=== PATIENT | female | born 1950 | race Caucasian/White ===

== ENCOUNTER 2017-11-23 12:15 | Day surgery (SDC) | payer MEDICARE, OTHER ==
[~2017-11-23] VITALS: Ht 154.9 cm; Wt 74.4 kg
[~2017-11-23 12:15] MED LIST: ABILIFY5 MG; AMBIEN10 MG PO; CIPRO500 MG PO; CYCLOBENZAPRINE10 MG PO; FLAGYL500 MG PO; FLOVENT DISKU100 MCG; LEVOTHYROXINE112 MCG PO; MIRALAX17 GM PO; MIRAPEX1 MG PO; NABUMETONE750 MG PO; NORCO 5-325 TA1 EACH PO; OMEPRAZOLE20 MG PO; PREDNISONE20 MG PO; TRAMADOL HCL50 MG PO; VENTOLIN HFA18 GM; ZITHROMAX500 MG PO
--- NOTE | 2017-11-25 08:59 | OR ---
[facility] [address] [place], [place] [address] Signed DATE OF OPERATION: 11/23/2017 SURGEON: Rubina Rogers MD PREOPERATIVE DIAGNOSIS: Right lower abdominal pain, history of polyps. POSTOPERATIVE DIAGNOSES: 1. Sigmoid diverticulosis. 2. Sessile polyp at 20 cm (excised). 3. Normal-appearing ileum. PROCEDURE: 1. Total colonoscopy to cecum with biopsy of ileum, cecum, and rectum. 2. Hot snare polypectomy of polyp at 20 cm. ANESTHESIA: Intravenous sedation, propofol infusion; Martir Tran CRNA. INDICATION: A 67-year-old white woman is a patient of Dr. Iyer and is complaining of right lower abdominal pain. She underwent colonoscopy in the past year showing two polyps, one in the hepatic flexure and the other in the splenic flexure. She was recommended colonoscopy in 5-7 years. She was treated with antibiotics for a presumptive episode of diverticulitis. The patient has family history of colon cancer in her mother. She strongly wishes to have colonoscopy again with great concerns for cancer, though I think it to be unlikely. The risks of bleeding, infection, and perforation related to colonoscopy, understood and accepted by the patient, and she wished to proceed. FINDINGS: The prep was good. Complete colonoscopy was undertaken to the cecum without problem. Terminal ileum was normal. The cecum was normal as well. There were numerous diverticula of the sigmoid and left colon. There was a sessile polyp at 20 cm, which was excised, only portion of the polyp excised could be retrieved for specimen, however. Retroflexed view of the rectum was normal. Biopsies taken of the rectum to assess for colitis, however. DESCRIPTION OF PROCEDURE: The patient was brought to the endoscopy suite and placed in lateral decubitus position, given intravenous sedation by the propofol infusion by the multifold operator. Digital rectal Electronically Signed By: RUBINA ROGERS MD 11/25/17 0859 PATIENT NAME: CHI THOMAS OPERATIVE REPORT DATE OF : 52 REPORT #: [id number] PHYSICIAN: RUBINA ROGERS MD PCP: DOC IYER MD REPORT IS CONFIDENTIAL AND NOT TO BE RELEASED WITHOUT AUTHORIZATION [facility] [address] [place], [place] [address] Signed examination was normal. An Olympus video colonoscope was passed in the rectum and manipulated throughout the colon. Numerous diverticula were seen in the sigmoid and distortion was noted. The scope was ultimately advanced to the cecum, however. The ileocecal valve was normal as well as the appendiceal orifice. The scope was passed into the ileum. The ileum was intubated for several centimeters and found to be normal. Biopsies were obtained to ascertain that. The scope was withdrawn and biopsy was then taken of cecum. The scope was carefully withdrawn from that point. Examination showed no sign of abnormality until the left colon where diverticula were once again seen. At 20 cm from the anal verge was a sessile polyp, this appeared to be adenomatous based on its narrow-band imaging characteristics. It was excised with hot snare polypectomy technique. Retrieval of the remnants of the polyp was with a Vega Net. The scope was further withdrawn. There were no other findings of concern. Retroflexed view was normal as well. Scope was removed. The patient was taken to recovery room in good condition. CONCLUDING DIAGNOSES: 1. Polyp of sigmoid. 2. Multiple diverticula of sigmoid and left colon. 3. Normal ileum and cecum. PLAN: She will return to the ongoing care of Dr. Iyer. We will recommend high-fiber diet and/or Citrucel fiber supplement one tablespoon p.o. daily. She will return to the ongoing care of Dr. Iyer. MD JUAN Arias/MIYAL /[id number] cc: Doc Iyer MD Copies: DOC IYER MD Electronically Signed By: RUBINA ROGERS MD 11/25/17 0859 PATIENT NAME: CHI THOMAS OPERATIVE REPORT DATE OF : 52 REPORT #: [id number] PHYSICIAN: RUBINA ROGERS MD PCP: DOC IYER MD REPORT IS CONFIDENTIAL AND NOT TO BE RELEASED WITHOUT AUTHORIZATION [facility] [address] [place], [place] [address] Signed ~ Electronically Signed By: RUBINA ROGERS MD 11/25/17 0859 PATIENT NAME: CHI THOMAS OPERATIVE REPORT DATE OF : 52 REPORT #: [id number] PHYSICIAN: RUBINA ROGERS MD PCP: DOC IYER MD REPORT IS CONFIDENTIAL AND NOT TO BE RELEASED WITHOUT AUTHORIZATION
== END 2017-11-23 15:35 | disposition home or self-care (01) ==
LOC: OPS 12:15 → DS 12:16 → OPS 13:00
PROVIDERS: Surgery
PROC: 0DBP8ZX Excision of Rectum, Via Natural or Artificial Opening Endoscopic, Diagnostic (ICD-10-PCS; 2017-11-23)
PROC: 0DBB8ZX Excision of Ileum, Via Natural or Artificial Opening Endoscopic, Diagnostic (ICD-10-PCS; 2017-11-23)
PROC: 0DBE8ZX Excision of Large Intestine, Via Natural or Artificial Opening Endoscopic, Diagnostic (ICD-10-PCS; 2017-11-23)
PROC: 0DBH8ZX Excision of Cecum, Via Natural or Artificial Opening Endoscopic, Diagnostic (ICD-10-PCS; principal; 2017-11-23 13:00)
DX: D12.6 Benign neoplasm of colon, unspecified (principal); K57.30 Diverticulosis of large intestine without perforation or abscess without bleeding; M19.90 Unspecified osteoarthritis, unspecified site; J44.9 Chronic obstructive pulmonary disease, unspecified; K21.9 Gastro-esophageal reflux disease without esophagitis; I10 Essential (primary) hypertension; F17.210 Nicotine dependence, cigarettes, uncomplicated; Z88.5 Allergy status to narcotic agent; Z86.010 Personal history of colon polyps; Z98.890 Other specified postprocedural states; Z79.899 Other long term (current) drug therapy
CPT/HCPCS: 88305; J0690; J2704; J7120

== ENCOUNTER 2018-05-19 21:50 | Emergency (ER) | payer MEDICARE, OTHER ==
[~2018-05-19] VITALS: Ht 154.9 cm; Wt 74.4 kg
--- OUTSIDE RECORDS SUMMARY | ~2018-05-19 | XMS | Clinical Summary ---
Demographics + + + | Address | [address] | | | [place] [address] | + + + | Home Phone | | + + + | Preferred Language | Unknown | + + + | Marital Status | Single | + + + | Moravian Affiliation | NON | + + + | Race | White | + + + | Ethnic Group | Not or | + + + Author + + + | Author | [facility] | + + + | Organization | [facility] | + + + | Address | Unknown | + + + | Phone | Unavailable | + + + Support + + +---------+ + | Name | Relationship | Address | Phone | + + +---------+ + | Tanvi Arriaga | ECON | Unknown | | + + +---------+ + Care Team Providers + +------+ + | Care Director Global Intelligence Name | Role | Phone | + +------+ + PP | Unavailable | + +------+ + Source Comments RAMÍREZ is fully live on both [facility] and [facility] InPatient.[facility] Allergies No Known Allergies Current Medications + + + +---------+------+------+-------+ | Prescription | Sig. | Disp. | Refills | Star | End | Statu | | | | | | t | Date | s | | | | | | Date | | | + + + +---------+------+------+-------+ | TRAZODONE HCL | Take by mouth. | | | | | Activ | | (TRAZODONE ORAL) | | | | | | e | + + + +---------+------+------+-------+ | CYCLOBENZAPRINE | Take by mouth. | | | | | Activ | | HCL (FLEXERIL ORAL) | | | | | | e | + + + +---------+------+------+-------+ | | Take 1 Tab by mouth | 24 Tab | 0 | 10/1 | | Activ | | hydrocodone-acetamin | every four hours as | | | 6/20 | | e | | ophen 5-500 mg Oral | needed for severe | | | 10 | | | | Tablet | pain. NTE 8 tabs per | | | | | | | | day. | | | | | | + + + +---------+------+------+-------+ Active Problems Not on file Social History + +-------+ +--------+------+ | Tobacco Use | Types | Packs/Day | Years | Date | | | | | Used | | + +-------+ +--------+------+ | Current Every Day | | | | | | Smoker | | | | | + +-------+ +--------+------+ + + | Comments: 1/2 ppd | + + + + +---------+ + | Alcohol Use | Drinks/We | oz/Week | Comments | | | ek | | | + + +---------+ + | No | | | | + + +---------+ + + + + | Sex Assigned at | Date Recorded | | | | + + + | Not on file | | + + + Last Filed Vital Signs + + + + | Vital Sign | Reading | Time Taken | + + + + | Blood Pressure | 123/52 | 06/14/2010 1:45 AM PDT | + + + + | Pulse | 69 | 06/14/2010 1:45 AM PDT | + + + + | Temperature | 37.2 C (99 F) | 06/13/2010 11:34 PM PDT | + + + + | Respiratory Rate | 14 | 06/14/2010 1:45 AM PDT | + + + + | Oxygen Saturation | 98% | 06/14/2010 1:45 AM PDT | + + + + | Inhaled Oxygen | - | - | | Concentration | | | + + + + | Weight | 90.7 kg (200 lb) | 06/14/2010 1:45 AM PDT | + + + + | Height | - | - | + + + + | Body Mass Index | - | - | + + + + Plan of Treatment + + + + + | Health Maintenance | Due Date | Last Done | Comments | + + + + + | Pneumococcal (Adult) | | | | | (1 of 2 - PCV13) | 7 | | | + + + + + | INFLUENZA VACCINE | | | | | (FLU SHOT) | 8 | | | + + + + + Results Not on filefrom Last 3 Months"
--- OUTSIDE RECORDS SUMMARY | ~2018-05-19 | XMS | Clinical Summary ---
Demographics + + + | Address | [address] | | | [place] [address] | + + + | Home Phone | | + + + | Preferred Language | Unknown | + + + | Marital Status | Single | + + + | Faith Affiliation | NON | + + + [...] Team Providers + +------+ + | Care Pharmacy Resident Name | Role | Phone | + +------+ + PP | Unavailable | + +------+ + Source Comments RAMÍREZ is fully live on both [facility] and [facility] InPatient.[facility] Allergies No Known Allergies Current Medications [...]
[2018-05-19] MEDS ORDERED: ZOFRAN ODT4 MG PO (23:51)
[2018-05-19] MEDS ORDERED: NORCO 5-325 TA1 EACH PO (23:51)
== END 2018-05-20 00:01 | disposition home or self-care (01) ==
LOC: ED 21:50
DX: R10.31 Right lower quadrant pain (principal); F17.200 Nicotine dependence, unspecified, uncomplicated; Z88.5 Allergy status to narcotic agent; Z88.8 Allergy status to other drugs, medicaments and biological substances; Z79.899 Other long term (current) drug therapy
CPT/HCPCS: 74176; 80053; 81001; 83690; 85025; 96374; 96375; 99284; J1170; J1885; J2405

== ENCOUNTER 2018-09-02 09:07 | Emergency (ER) | payer MEDICARE, OTHER ==
[~2018-09-02] VITALS: Ht 154.9 cm; Wt 74.4 kg
[~2018-09-02 09:07] MED LIST changes: +ZOFRAN ODT4 MG PO
[2018-09-02] MEDS ORDERED: ULTRAM50 MG PO (14:19)
== END 2018-09-02 14:32 | disposition home or self-care (01) ==
LOC: ED 09:07
DX: I65.02 Occlusion and stenosis of left vertebral artery (principal); I77.1 Stricture of artery; J44.9 Chronic obstructive pulmonary disease, unspecified; F17.200 Nicotine dependence, unspecified, uncomplicated; Z90.710 Acquired absence of both cervix and uterus; Z88.6 Allergy status to analgesic agent; Z88.5 Allergy status to narcotic agent; Z88.8 Allergy status to other drugs, medicaments and biological substances; Z79.899 Other long term (current) drug therapy
CPT/HCPCS: 70498; 80048; 85025; 96374; 99284-25; J1885; Q9967

== ENCOUNTER 2019-01-05 09:06 | Day surgery (SDC) | payer MEDICARE, OTHER ==
[~2019-01-05] VITALS: Ht 154.9 cm; Wt 70.3 kg
[~2019-01-05 09:06] MED LIST changes: +ULTRAM50 MG PO
[2019-01-05] MEDS ORDERED: CHANTIX0.5 MG PO (09:30)
[2019-01-05] MEDS ORDERED: CLOPIDOGREL75 MG PO (09:30)
[2019-01-05] MEDS ORDERED: FAMOTIDINE20 MG PO (09:30)
[2019-01-05] MEDS ORDERED: MIRAPEX0.5 MG PO (09:31)
--- NOTE | 2019-01-05 10:38 | NUR ---
dr maldonado did bx and instructed pt.
--- NOTE | 2019-01-05 10:42 | NUR ---
pt to follow dr emanuel instructions. bandaid clean and dry. daughter here with pt. anni renee.
--- NOTE | 2019-01-05 10:48 | NUR ---
daughter here and dr maldonado talked with her.
--- NOTE | 2019-01-06 22:37 | OR ---
[facility] [address], [place] [address] Signed DATE OF OPERATION: 01/05/2019 SURGEON: Rubina Rogers MD PREOPERATIVE DIAGNOSIS: 16 mm right thyroid nodule. POSTOPERATIVE DIAGNOSIS: 16 mm right thyroid nodule. PROCEDURES PERFORMED: 1. Evaluation of thyroid with ultrasound. 2. Ultrasound-guided fine-needle aspiration biopsy of right thyroid nodule. ANESTHESIA: 1% lidocaine with epinephrine 3 mL. INDICATION: This 68-year-old white woman is a patient of Dr. Iyer and had complaints of throat and ear pain. She underwent a CT scan of the head and neck, which demonstrated a right-sided thyroid nodule, which was likely asymptomatic. In the meantime, she underwent left carotid stenting in the [facility] for carotid stenosis. The nodule was evaluated by ultrasound confirming a 16 mm nodule. Her neck exam shows no palpable lesion. She is to now undergo ultrasound-guided fine-needle aspiration biopsy of the nodule. She understands the risks of bleeding, infection, and other unforeseen complications. FINDINGS: The lesion was easily identified in the right mid upper thyroid gland. With ultrasound guidance, multiple passes were made with 22-gauge needle aspiration technique. There were no complications. DESCRIPTION OF PROCEDURE: The patient was placed in the supine position with a shoulder roll using a pillow allowing for extension of the neck. The neck was interrogated with a SonSympler ultrasound device demonstrating a nodule in the mid to upper portion of the right thyroid lobe, which was reasonably distinct. The isthmus and left lobe were normal. The neck was then prepared with a chlorhexidine solution and sterile drapes surrounded the neck. 1% lidocaine with epinephrine injected under ultrasound guidance in the skin at the lateral aspect of the ultrasound device as well as the midportion anticipating 2 Electronically Signed By: RUBINA ROGERS MD 01/06/19 2237 PATIENT NAME: CHI THOMAS OPERATIVE REPORT DATE OF : 52 REPORT #: [id number] PHYSICIAN: RUBINA ROGERS MD PCP: DOC IYER MD REPORT IS CONFIDENTIAL AND NOT TO BE RELEASED WITHOUT AUTHORIZATION [facility] [address], [place] [address] Signed possible approaches. Using a control syringe 10 mL with a 22-gauge needle, the passage of the needle to the thyroid nodule was undertaken on ultrasound guidance. Multiple passes were taken through the lesion. Both lateral and AP approaches were taken to the nodule ultimately allowing for good specimens. Re-examination showed no sign of bleeding or other problem. A Band-Aid was applied. The patient tolerated the procedure well. Photodocumentation was taken and placed on the chart as well. MD JUAN Arias/ALISTAIR /[id number] cc: Doc Iyer MD Copies: DOC IYER MD ~ Electronically Signed By: RUBINA ROGERS MD 01/06/19 2237 PATIENT NAME: CHI THOMAS OPERATIVE REPORT DATE OF : 52 REPORT #: [id number] PHYSICIAN: RUBINA ROGERS MD PCP: DOC IYER MD REPORT IS CONFIDENTIAL AND NOT TO BE RELEASED WITHOUT AUTHORIZATION
== END 2019-01-05 10:45 | disposition home or self-care (01) ==
LOC: OPS 09:06 → DS 09:10 → OPS 09:15 → DS 09:15 → OPS 10:45
PROC: 0GBH3ZX Excision of Right Thyroid Gland Lobe, Percutaneous Approach, Diagnostic (ICD-10-PCS; principal; 2019-01-05)
PROC: BG44ZZZ Ultrasonography of Thyroid Gland (ICD-10-PCS; 2019-01-05)
DX: E04.1 Nontoxic single thyroid nodule (principal); K59.09 Other constipation; J44.9 Chronic obstructive pulmonary disease, unspecified; K21.9 Gastro-esophageal reflux disease without esophagitis; I49.3 Ventricular premature depolarization; F40.240 Claustrophobia; I10 Essential (primary) hypertension; Z88.5 Allergy status to narcotic agent; Z88.6 Allergy status to analgesic agent; Z87.891 Personal history of nicotine dependence
CPT/HCPCS: 88173; 88305

== ENCOUNTER 2020-05-07 12:58 | Day surgery (SDC) | payer MEDICARE, OTHER ==
[~2020-05-07] VITALS: Ht 154.9 cm; Wt 7.7 kg
--- NOTE | ~2020-05-07 | OR ---
[facility] [address], [place] [address] Draft DATE OF OPERATION: 05/07/2020 SURGEON: Rubina Rogers MD DATE OF PROCEDURE: 05/07/2020 PREOPERATIVE DIAGNOSIS: History of adenoma at 20 cm, 2018. POSTOPERATIVE DIAGNOSIS: Sigmoid diverticulosis. No evidence of recurrent or new polyp. PROCEDURE: Total colonoscopy to cecum (difficult). ANESTHESIA: Intravenous sedation, fentanyl 150 mcg and Versed 10 mg. INDICATION: This 69-year-old white woman is a patient of Dr. Iyer and underwent colonoscopy by me in 2018 at which time she was found to have an adenoma at 20 cm from the anal verge. She is here for surveillance colonoscopy. She has no bleeding, diarrhea, or constipation currently. She understands risks of colonoscopy including, but not limited to bleeding, infection, and perforation and wished to proceed. FINDINGS: She had a rather tenacious red fluid of some sort, likely red jello. With irrigation, it could be cleared up well. There are numerous diverticula throughout the colon most dominantly in the sigmoid and left colon. Colonoscopy was challenging on that basis, but was accomplished fully to the cecum without question. She had no sign of recurrent or new polyps. Only diverticulosis. DESCRIPTION OF PROCEDURE: The patient was brought to the endoscopy suite and placed in lateral decubitus position given intravenous sedation to the point of slurred speech and nystagmus with full cardiopulmonary monitoring. Digital rectal examination was normal. Olympus video colonoscope was passed in the rectum noting some bright red probably jello which was somewhat tenacious and sticky to the colonic wall. This did not represent PATIENT NAME: CHI THOMAS OPERATIVE REPORT DATE OF : 52 REPORT #: [id number] PHYSICIAN: RUBINA ROGERS MD PCP: DOC IYER MD REPORT IS CONFIDENTIAL AND NOT TO BE RELEASED WITHOUT AUTHORIZATION [facility] [address], [place] [address] Draft blood. Irrigation was then undertaken as needed. The scope was manipulated into the sigmoid where numerous diverticula were noted. With various manipulations time and additional sedation, the scope was passed beyond the sigmoid, ultimately to the left colon and ultimately also to the cecum itself. The ileocecal valve and appendiceal orifice were normal. The scope was withdrawn from that point. Careful inspection showed no sign of polyps or colitis, only diverticular changes throughout the colon most dominantly in the left and sigmoid colon. Retroflexed view of the rectum was normal. Scope was removed. The patient was taken to the recovery room in good condition. CONCLUDING DIAGNOSIS: Diverticulosis. No evidence recurrent polyps. PLAN: Recommend repeat colonoscopy in 5 to 10 years, sooner if clinically indicated. Recommend high-fiber diet. Will anticipate propofol infusional technique in the future given her relative resistance to sedating medications at some points during the procedure. MD JUAN Arias/ALISTAIR /[id number] cc: Doc Iyer MD Copies: DOC IYER MD ~ PATIENT NAME: CHI THOMAS OPERATIVE REPORT DATE OF : 52 REPORT #: [id number] PHYSICIAN: RUBINA ROGERS MD PCP: DOC IYER MD REPORT IS CONFIDENTIAL AND NOT TO BE RELEASED WITHOUT AUTHORIZATION
[~2020-05-07 12:58] MED LIST changes: +CHANTIX0.5 MG PO; +CLOPIDOGREL75 MG PO; +FAMOTIDINE20 MG PO; +MIRAPEX0.5 MG PO
--- NOTE | 2020-05-07 15:42 | NUR ---
05/07/20 1542 Vicki Salmon 1518 PT ARRIVED IN PACU SLEEPY WITH NO C/O'S. ABD SOFT AND PASSING FLATUS. 1530 RESTING. REU. 1540 SLEEPY. AWAKENS TO VERBAL AND TACTILE STIMULI, THEN FALLS BACK TO SLEEP.
== END 2020-05-07 16:10 | disposition home or self-care (01) ==
LOC: OPS 12:58 → DS 12:58 → OPS 14:00
PROVIDERS: ATTEND Surgery
PROC: 0DJD8ZZ Inspection of Lower Intestinal Tract, Via Natural or Artificial Opening Endoscopic (ICD-10-PCS; principal; 2020-05-07 14:00)
DX: Z12.11 Encounter for screening for malignant neoplasm of colon (principal); K57.30 Diverticulosis of large intestine without perforation or abscess without bleeding; I10 Essential (primary) hypertension; J44.9 Chronic obstructive pulmonary disease, unspecified; K21.9 Gastro-esophageal reflux disease without esophagitis; M19.90 Unspecified osteoarthritis, unspecified site; Z88.5 Allergy status to narcotic agent; Z88.8 Allergy status to other drugs, medicaments and biological substances; Z79.899 Other long term (current) drug therapy; Z79.01 Long term (current) use of anticoagulants; Z86.010 Personal history of colon polyps; Z95.9 Presence of cardiac and vascular implant and graft, unspecified; Z87.891 Personal history of nicotine dependence
CPT/HCPCS: 99153; G0500; J0690; J2250; J3010; J7121

== ENCOUNTER 2020-08-02 10:21 | Emergency (ER) | payer MEDICARE, OTHER ==
[~2020-08-02] VITALS: Ht 154.9 cm; Wt 74.8 kg
[~2020-08-02 10:21] MED LIST changes: -FAMOTIDINE20 MG PO; +PEPCID40 MG PO
--- OUTSIDE RECORDS SUMMARY | 2020-08-02 10:24 | XMS ---
PreManage Notification: CHI THOMAS Security Drop Man Events No recent Security Events currently on file CRITERIA MET - PDMP CARE PROVIDERS DOC HORTA [facility] 09/02/2018-Current PHONE: [phone] Yvan has no Care Guidelines for this patient. E.Kiersten VISIT COUNT (12 MO.) 1 HEMA Michael TOTAL 1 NOTE: Visits indicate total known visits. ED/UCC VISIT TRACKING (12 MO.) 08/02/2020 10:21 HEMA Isabel [place] TYPE: Emergency COMPLAINT: - ABD PAIN INPATIENT VISIT TRACKING (12 MO.) No inpatient visits to display in this time frame [email or web address]
[2020-08-02] MEDS ORDERED: ONDANSETRON ODT4 MG PO (10:43)
[2020-08-02] MEDS ORDERED: SUCRALFATE1 GM PO (10:44)
[2020-08-02] MEDS ORDERED: VENTOLIN HFA18 GM INH (11:08)
[2020-08-02] MEDS ORDERED: DICLOFENAC SOD100 G1 TOP (11:09)
[2020-08-02] MEDS ORDERED: ATORVASTATIN CA80 MG PO (11:12)
[2020-08-02] MEDS ORDERED: PRILOSEC OTC20 MG PO (13:53)
[2020-08-02] MEDS ORDERED: NORCO 5-325 TA1 EACH PO (13:53)
== END 2020-08-02 14:13 | disposition home or self-care (01) ==
LOC: ED 10:21
DX: R10.12 Left upper quadrant pain (principal); R10.13 Epigastric pain; F17.200 Nicotine dependence, unspecified, uncomplicated; Z88.6 Allergy status to analgesic agent; Z88.8 Allergy status to other drugs, medicaments and biological substances; Z88.5 Allergy status to narcotic agent; Z79.899 Other long term (current) drug therapy; Z79.891 Long term (current) use of opiate analgesic
CPT/HCPCS: 36415; 74177; 80053; 83690; 85025; 99284-25; Q9967

== ENCOUNTER 2020-09-20 06:27 | Day surgery (SDC) | payer MEDICARE, OTHER ==
[~2020-09-20 06:27] MED LIST changes: +ATORVASTATIN CA80 MG PO; +DICLOFENAC SOD100 G1 TOP; +ONDANSETRON ODT4 MG PO; +PRILOSEC OTC20 MG PO; +SUCRALFATE1 GM PO; +VENTOLIN HFA18 GM INH
--- NOTE | 2020-09-20 08:05 | NUR ---
09/20/20 0805 Mei Bean 0802 PT ARRIVED TO PACU ON 3L VIA NC, PT WAKES EASILY AND DENIES PAIN AND NAUSEA. PLAN OF CARE DISCUSSED AND PT FALLS EASILY BACK TO SLEEP. VSS.
--- NOTE | 2020-09-22 15:35 | OR ---
[facility] [address], [place] [address] Signed DATE OF OPERATION: 09/20/2020 SURGEON: Rubina Rogers MD PREOPERATIVE DIAGNOSES: Significant upper abdominal pain, known distant history of hiatal hernia and esophagitis. POSTOPERATIVE DIAGNOSES: 1. Diffuse gastritis worse in antrum. 2. Small hiatal hernia with minimal distal esophagitis. 3. Retained food in stomach. PROCEDURE: Esophagogastroduodenoscopy with biopsy. ANESTHESIA: Intravenous sedation, fentanyl 100 mcg and Versed 4 mg. INDICATION: This is a 69-year-old white woman is a patient of Dr. Iyer and well known to me from the past. She was recently having increasing upper abdominal pain and GI symptoms, which were becoming worse, but no associated dysphagia. She was empirically treated with Prilosec, which has been helpful to her. She is admitted at this time to undergo upper endoscopy to better characterize the problem. She understands the risks of bleeding, infection, and perforation related to upper endoscopy and wished to proceed. FINDINGS: Retained food in the stomach was noted. This implies of course possible gastric dysmotility. There was no sign of gastric outlet obstruction proper however. There was antral gastritis, a hiatal hernia and mild distal esophagitis. The duodenum was normal. CLOtest was negative 15 minutes post procedure. DESCRIPTION OF PROCEDURE: The patient was brought to the endoscopy suite and given topical lidocaine spray hypopharyngeal anesthesia. A bite block was placed. An Olympus video upper endoscope was passed into the hypopharynx after satisfactory intravenous sedation with full cardiopulmonary monitoring. The vocal cords appeared normal. Scope was advanced to the esophagus throughout its length. It was reasonably normal though the distal portion had minimal inflammation. Scope was passed in the stomach and immediately noted was retained food in the body of the stomach. There was no associated neoplasm. The scope Electronically Signed By: RUBINA ROGERS MD 09/22/20 1535 PATIENT NAME: CHI THOMAS OPERATIVE REPORT DATE OF : 52 REPORT #: [id number] PHYSICIAN: RUBINA ROGERS MD PCP: DOC IYER MD REPORT IS CONFIDENTIAL AND NOT TO BE RELEASED WITHOUT AUTHORIZATION [facility] [address], [place] [address] Signed was manipulated, passed the retained food into the antrum where there was mild antral gastritis. The pylorus was normal. There was no sign of gastric outlet obstruction or stricture or ulcer. The scope was passed through into the duodenum. The duodenum appeared normal. Biopsies were obtained there. The scope was withdrawn. A biopsy was then taken of the antrum for both TYSON and pathologic testing. Retroflexed view was undertaken showing hiatal hernia as previously has been identified. The scope was withdrawn and distal esophageal biopsies and midesophageal biopsies obtained, but there was no sign of stricture or neoplasm. The scope was removed and the patient was taken to recovery room in good condition. CONCLUDING DIAGNOSIS: Antral gastritis with clinical symptoms improving with PPI medication. Retained food in stomach suggestive of gastric dysmotility. PLAN: Recommend continued use of Prilosec. We will order a solid fit emptying study and see patient after that. If she has emptying problems of the stomach, there are some dietary and medical measures would be employed. Rubina Rogers MD JM/MODL /[id number] cc: Doc Iyer MD Copies: DOC IYER MD ~ Electronically Signed By: RUBINA ROGERS MD 09/22/20 1535 PATIENT NAME: CHI THOMAS OPERATIVE REPORT DATE OF : 52 REPORT #: [id number] PHYSICIAN: RUBINA ROGERS MD PCP: DOC IYER MD REPORT IS CONFIDENTIAL AND NOT TO BE RELEASED WITHOUT AUTHORIZATION
--- NOTE | 2020-09-24 11:18 | PATH ---
[facility] [address] [place], [place] [address] Signed SPECIMEN(S): A DUODENAL BIOPSY SPECIMEN(S): B ANTRUM/PYLORUS BIOPSY SPECIMEN(S): C LOWER ESOPHAGEAL BIOPSY SPECIMEN(S): D MIDDLE ESOPHAGEAL BIOPSY SPECIMEN SOURCE: A. DUODENAL BIOPSY B. ANTRUM/PYLORUS BIOPSY C. LOWER ESOPHAGEAL BIOPSY D. MIDDLE ESOPHAGEAL BIOPSY CLINICAL HISTORY: Abdominal pain, GERD, gastritis, hiatal hernia, distal esophagitis. MICROSCOPIC DESCRIPTION: Histologic sections of all submitted blocks are examined by light microscopy. These findings, together with the gross examination, support the pathologic diagnosis. FINAL PATHOLOGIC DIAGNOSIS: A. Duodenum, biopsy: - Duodenal mucosa with no histopathologic abnormality. - Negative for increased intraepithelial lymphocytes. - Negative for dysplasia or malignancy. B. Stomach, antrum/pylorus, biopsy: - Antral mucosa with reactive gastropathy and mild chronic, inactive gastritis. - Negative for Helicobacter organisms on HE stain. - Negative for dysplasia or malignancy. C. Esophagus, lower, biopsy: - Squamous mucosa with chronic inflammation and reactive epithelial changes, suggestive of reflux esophagitis. - Cardia-type gastric mucosa with reactive gastropathy. - Negative for intestinal metaplasia, dysplasia, or malignancy. D. Esophagus, middle, biopsy: - Squamous mucosa with mild chronic inflammation and reactive epithelial changes. - Negative for increased intraepithelial eosinophils. - Negative for dysplasia or malignancy. NAL:cml:C2NR GROSS DESCRIPTION: PATIENT NAME: WASHINGTON HUDSON PATHOLOGY DATE OF : 52 REPORT #: [id number] PHYSICIAN: MEL BURKS PCP: DOC HORTA MD REPORT IS CONFIDENTIAL AND NOT TO BE RELEASED WITHOUT AUTHORIZATION [facility] [address] [place], [place] [address] Signed Four specimens are received in four containers, labeled "[place] Hudson." A. The specimen, labeled " [place], #1," and designated on the requisition "duodenal biopsy," is received in formalin and consists of one goncalves soft tissue fragment that measures 0.4 cm in greatest dimension. The specimen is entirely submitted in cassette (A1). B. The specimen, labeled " [place], #2," and designated on the requisition "antrum/pylorus biopsy," is received in formalin and consists of two goncalves soft tissue fragment(s) that measure 0.3 and 0.5 cm in greatest dimension. The specimen is entirely submitted in cassette (B1). C. The specimen, labeled " [place], #3," and designated on the requisition "lower esophagus biopsy," is received in formalin and consists of three ipefz-ksf-cof soft tissue fragment(s) that measure 0.2-0.6 cm in greatest dimension. The specimen is entirely submitted in cassette (C1). D. The specimen, labeled " [place], #4," and designated on the requisition "middle esophagus biopsy," is received in formalin and consists of one white-goncalves soft tissue fragment that measures 0.3 cm in greatest dimension. The specimen is entirely submitted in cassette (D1). FB (under the direct supervision of a pathologist) The Gross Description was prepared using a voice recognition system. The report was reviewed for accuracy; however, sound-alike word errors, addition and/or deletions may occur. If there is any question about this report, please contact Client Services. PERFORMING LABORATORY: The technical component was performed by [facility], [address] [place] [id number] (Erp Specialist: Antonia Kaur MD; CLIA# [id number]). [facility] [address] [place] [address] (CLIA# [id number]). Diagnostician: Kristy Nagel MD Pathologist Electronically Signed 09/24/2020 Copies: ~ PATIENT NAME: WASHINGTON HUDSON PATHOLOGY DATE OF : 52 REPORT #: [id number] PHYSICIAN: MEL PATHOLOGY PCP: DOC HORTA MD REPORT IS CONFIDENTIAL AND NOT TO BE RELEASED WITHOUT AUTHORIZATION
== END 2020-09-20 08:35 | disposition home or self-care (01) ==
LOC: DS 06:27 → OPS 06:27 → DS 06:45 → OPS 06:45
PROVIDERS: ATTEND Surgery
PROC: 0DB78ZX Excision of Stomach, Pylorus, Via Natural or Artificial Opening Endoscopic, Diagnostic (ICD-10-PCS; 2020-09-20)
PROC: 0DB28ZX Excision of Middle Esophagus, Via Natural or Artificial Opening Endoscopic, Diagnostic (ICD-10-PCS; 2020-09-20)
PROC: 0DB38ZX Excision of Lower Esophagus, Via Natural or Artificial Opening Endoscopic, Diagnostic (ICD-10-PCS; 2020-09-20)
PROC: 0DB98ZX Excision of Duodenum, Via Natural or Artificial Opening Endoscopic, Diagnostic (ICD-10-PCS; principal; 2020-09-20 06:45)
DX: K29.50 Unspecified chronic gastritis without bleeding (principal); K31.9 Disease of stomach and duodenum, unspecified; K21.00 Gastro-esophageal reflux disease with esophagitis, without bleeding; K44.9 Diaphragmatic hernia without obstruction or gangrene; I10 Essential (primary) hypertension; J44.9 Chronic obstructive pulmonary disease, unspecified; K59.09 Other constipation; E04.1 Nontoxic single thyroid nodule; M89.49 Other hypertrophic osteoarthropathy, multiple sites; F17.210 Nicotine dependence, cigarettes, uncomplicated; Z88.5 Allergy status to narcotic agent; Z88.8 Allergy status to other drugs, medicaments and biological substances; Z79.02 Long term (current) use of antithrombotics/antiplatelets; Z79.899 Other long term (current) drug therapy; Z79.890 Hormone replacement therapy; Z86.010 Personal history of colon polyps; Z90.49 Acquired absence of other specified parts of digestive tract
CPT/HCPCS: 99153; G0500; J0690; J2250; J3010; J7121

== ENCOUNTER 2022-02-27 11:53 | Emergency (ER) | payer MEDICARE, OTHER ==
[~2022-02-27] VITALS: Ht 154.9 cm; Wt 77.1 kg
--- OUTSIDE RECORDS SUMMARY | 2022-02-27 11:56 | XMS ---
PreManage Notification: CHI THOMAS Security Filter Press Tender Head Events No recent Security Events currently on file CRITERIA MET - PDMP CARE PROVIDERS DOC HORTA [facility] 09/02/2018-Current PHONE: Unknown Yvan has no Care Guidelines for this patient. EJean Claude VISIT COUNT (12 MO.) 1 HEMA Michael TOTAL 1 NOTE: Visits indicate total known visits. ED/UCC VISIT TRACKING (12 MO.) 02/27/2022 11:54 HEMA Isaebl [place] TYPE: Emergency COMPLAINT: - FLU INFUSION INPATIENT VISIT TRACKING (12 MO.) No inpatient visits to display in this time frame [id number]
[2022-02-27] MEDS ORDERED: VARENICLINE TART1 MG PO (15:42)
== END 2022-02-27 18:08 | disposition home or self-care (01) ==
LOC: ED 11:53
DX: U07.1 COVID-19 (principal); Z23 Encounter for immunization; E11.9 Type 2 diabetes mellitus without complications; F17.200 Nicotine dependence, unspecified, uncomplicated; Z88.8 Allergy status to other drugs, medicaments and biological substances; Z88.6 Allergy status to analgesic agent; Z88.5 Allergy status to narcotic agent; Z79.899 Other long term (current) drug therapy; Z79.891 Long term (current) use of opiate analgesic
CPT/HCPCS: 96374; 99283-25

== ENCOUNTER 2023-04-25 12:52 | Emergency (ER) | payer MEDICARE, OTHER ==
[~2023-04-25] VITALS: Ht 154.9 cm; Wt 77.1 kg
--- OUTSIDE RECORDS SUMMARY | ~2023-04-25 | XMS | Continuity of Care Document ---
Demographics + + + | Address | [address] | | | [place] [address] | + + + | Preferred Language | Unknown | + + + | Marital Status | Never | + + + | Episcopal Affiliation | Unknown | + + + | Race | White | + + + | Ethnic Group | Not or | + + + Author + + + | Author | [facility] | + + + | Organization | [facility] | + + + | Address | [address] | | | [place] [address] | + + + | Phone | | + + + Care Team Providers + + + + | Care Education Dean Name | Role | Phone | + + + + Unavailable | Unavailable | + + + + Unavailable | Unavailable | + + + + Allergies and Intolerances + + + + + + | date | description | facility | reaction | severity | + + + + + + | (no date) | Upset stomach | [facility] | (no reaction) | (no severity) | | [facility] | | | + + + + + + | (no date) | Mild | [facility] | (no reaction) | (no severity) | | | [facility] | | | + + + + + + | (no date) | codeine | [facility] | (no reaction) | (no severity) | | | [facility] | | | + + + + + + | (no date) | ketorolac | [facility] | (no reaction) | (no severity) | | | [facility] | | | + + + + + + | (no date) | meloxicam | [facility] | (no reaction) | (no severity) | | | [facility] | | | + + + + + + | (no date) | codeine | [facility] | (no reaction) | (no severity) | + + + + + + | (no date) | ketorolac | [facility] | (no reaction) | (no severity) | + + + + + + | (no date) | meloxicam | [facility] | (no reaction) | (no severity) | + + + + + + Encounters No information. Functional Status No information. Immunizations No information. Medications + + + + | date | description | facility | + + + + | 2022-03-09 00:00 | FAMOTIDINE | [facility] | + + + + | 2022-03-09 00:00 | ONDANSETRON | [facility] | + + + + | 2022-03-09 00:00 | OMEPRAZOLE | [facility] | + + + + | 2022-03-09 00:00 | CIPROFLOXACIN HCL | [facility] | + + + + | 2022-03-09 00:00 | METRONIDAZOLE | [facility] | + + + + | 2014-12-01 00:00 | AZITHROMYCIN | [facility] | + + + + | 2022-03-09 00:00 | ATORVASTATIN CALCIUM | [facility] | + + + + | 2022-03-09 00:00 | CLOPIDOGREL BISULFATE | [facility] | + + + + | 2022-03-09 00:00 | NABUMETONE | [facility] | + + + + | 2014-12-01 00:00 | predniSONE | [facility] | + + + + | 2022-03-09 00:00 | SUCRALFATE | [facility] | + + + + | 2020-08-02 00:00 | OMEPRAZOLE MAGNESIUM | [facility] | + + + + | 2022-03-09 00:00 | ARIPIPRAZOLE | [facility] | + + + + | 2022-03-09 00:00 | Varenicline Tartrate | [facility] | + + + + | 2022-03-09 00:00 | VARENICLINE TARTRATE | [facility] | + + + + | 2022-03-09 00:00 | CYCLOBENZAPRINE HCL | [facility] | + + + + | 2022-03-09 00:00 | TRAMADOL HCL | [facility] | + + + + | 2018-09-02 00:00 | TRAMADOL HCL | [facility] | + + + + | 2022-03-09 00:00 | ZOLPIDEM TARTRATE | [facility] | + + + + | 2022-03-09 00:00 | Diclofenac Sodium | [facility] | + + + + | 2014-12-01 00:00 | HYDROCODONE | [facility] | | | BIT/ACETAMINOPHEN | | + + + + | 2018-05-19 00:00 | HYDROCODONE | [facility] | | | BIT/ACETAMINOPHEN | | + + + + | 2020-08-02 00:00 | HYDROCODONE | [facility] | | | BIT/ACETAMINOPHEN | | + + + + | 2022-03-09 00:00 | PRAMIPEXOLE DI-HCL | [facility] | + + + + | 2022-03-09 00:00 | PRAMIPEXOLE DI-HCL | [facility] | + + + + | 2022-03-09 00:00 | ALBUTEROL SULFATE | [facility] | + + + + | 2022-03-09 00:00 | POLYETHYLENE GLYCOL 3350 | [facility] | + + + + | 2018-05-19 00:00 | ONDANSETRON | [facility] | + + + + | 2022-03-09 00:00 | FLUTICASONE PROPIONATE | [facility] | + + + + | 2022-03-09 00:00 | LEVOTHYROXINE SODIUM | [facility] | + + + + Problems + + + + | date | description | facility | + + + + | 2014-07-01 00:00 | Contusion of multiple | [facility] | | | sites | | + + + + | 2014-12-01 00:00 | Acute bronchitis | [facility] | + + + + | 2018-05-19 00:00 | Abdominal pain | [facility] | + + + + | 2022-06-26 14:47 | SPONDYLOSIS W/O MYELOPATHY | [facility] | | | OR RADICULOPATHY, LUMBA | | + + + + | 2022-06-26 14:47 | SPINAL STENOSIS, LUMBAR | [facility] | | | REGION WITHOUT NEUROGENIC | | + + + + | 2022-06-26 14:47 | SCIATICA, UNSPECIFIED SIDE | [facility] | | | | | + + + + | 2022-06-26 14:47 | SCIATICA, LEFT SIDE | [facility] | + + + + | 2023-03-18 08:54 | NICOTINE DEPENDENCE, | [facility] | | | UNSPECIFIED, UNCOMP | | + + + + | 2023-03-18 08:54 | NICOTINE DEPENDENCE, | [facility] | | | CIGARETTES, UNCOMPLICATED | | + + + + | 2023-03-18 08:54 | SOLITARY PULMONARY NODULE | [facility] | + + + + | 2023-03-18 08:54 | ENCNTR SCREEN FOR | [facility] | | | MALIGNANT NEOPLASM OF | | | | RESPIRATORY ORGANS | | + + + + | 2023-03-18 08:54 | PERSONAL HISTORY OF | [facility] | | | NICOTINE DEPENDENCE | | + + + + | 2023-03-18 09:00 | NICOTINE DEPENDENCE, | [facility] | | | UNSPECIFIED, UNCOMP | | + + + + Procedures No information. Results/Labs No information. Social History No information. Vital Signs + + + +---------+ | date | measurement | value | units | + + + +---------+ | 2022-02-27 00:00 | BMI | 32.1 | kg/m2 | + + + +---------+ | 2022-02-27 00:00 | BP_diastolic | 64 | mmHg | + + + +---------+ | 2022-02-27 00:00 | BP_systolic | 144 | mmHg | + + + +---------+ | 2022-02-27 00:00 | heart_rate | 80 | /min | + + + +---------+ | 2022-02-27 00:00 | height_metric | 154.94 | cm | + + + +---------+ | 2022-02-27 00:00 | height_standard | 61 | in | + + + +---------+ | 2022-02-27 00:00 | o2_saturation | 99 | % | + + + +---------+ | 2022-02-27 00:00 | respiration_rate | 17 | /min | + + + +---------+ | 2022-02-27 00:00 | temperature_metric | 37.28 | C | | | | | | + + + +---------+ | 2022-02-27 00:00 | | 99.1 | F | | | temperature_standar | | | | | d | | | + + + +---------+ | 2022-02-27 00:00 | weight_metric | 77.11 | kg | + + + +---------+ | 2022-02-27 00:00 | weight_standard | 170 | lb | + + + +---------+"
--- OUTSIDE RECORDS SUMMARY | ~2023-04-25 | XMS | Continuity of Care Document ---
Demographics + + + | Address | [address] | | | [place] [address] | + + + | Preferred Language | Unknown | + + + | Marital Status | Never | + + + | Scientology Affiliation | Unknown | + + + | Race | White | + + + | Ethnic Group | Not or | + + + Author + + + | Author | [facility] | + + + | Organization | [facility] | + + + | Address | [address] | | | [place] [address] | + + + | Phone | | + + + Care Team Providers + + + + | Care Marine Oil Terminal Superintendent Name | Role | Phone | + [...] + | 2022-03-09 00:00 | FAMOTIDINE | [facility] | + + + + | 2022-03-09 00:00 | ONDANSETRON | [facility] | + + + + | 2022-03-09 00:00 | OMEPRAZOLE | [facility] | + + + + | 2022-03-09 00:00 | CIPROFLOXACIN HCL | [facility] | + + + + | 2022-03-09 00:00 | METRONIDAZOLE | [facility] | + + + + | 2014-12-01 00:00 | AZITHROMYCIN | [facility] | + + + + | 2022-03-09 00:00 | ATORVASTATIN CALCIUM | [facility] | + + + + | 2022-03-09 00:00 | CLOPIDOGREL BISULFATE | [facility] | + + + + | 2022-03-09 00:00 | NABUMETONE | [facility] | + + + + | 2014-12-01 00:00 | predniSONE | [facility] | + + + + | 2022-03-09 00:00 | SUCRALFATE | [facility] | + + + + | 2020-08-02 00:00 | OMEPRAZOLE MAGNESIUM | [facility] | + + + + | 2022-03-09 00:00 | ARIPIPRAZOLE | [facility] | + + + + | 2022-03-09 00:00 | Varenicline Tartrate | [facility] | + + + + | 2022-03-09 00:00 | VARENICLINE TARTRATE | [facility] | + + + + | 2022-03-09 00:00 | CYCLOBENZAPRINE HCL | [facility] | + + + + | 2022-03-09 00:00 | TRAMADOL HCL | [facility] | + + + + | 2018-09-02 00:00 | TRAMADOL HCL | [facility] | + + + + | 2022-03-09 00:00 | ZOLPIDEM TARTRATE | [facility] | + + + + | 2022-03-09 00:00 | Diclofenac Sodium | [facility] | + + + + | 2014-12-01 00:00 | HYDROCODONE | [facility] | | | BIT/ACETAMINOPHEN | | + + + + | 2018-05-19 00:00 | HYDROCODONE | [facility] | | | BIT/ACETAMINOPHEN | | + + + + | 2020-08-02 00:00 | HYDROCODONE | [facility] | | | BIT/ACETAMINOPHEN | | + + + + | 2022-03-09 00:00 | PRAMIPEXOLE DI-HCL | [facility] | + + + + | 2022-03-09 00:00 | PRAMIPEXOLE DI-HCL | [facility] | + + + + | 2022-03-09 00:00 | ALBUTEROL SULFATE | [facility] | + + + + | 2022-03-09 00:00 | POLYETHYLENE GLYCOL 3350 | [facility] | + + + + | 2018-05-19 00:00 | ONDANSETRON | [facility] | + + + + | 2022-03-09 00:00 | FLUTICASONE PROPIONATE | [facility] | + + + + | 2022-03-09 00:00 | LEVOTHYROXINE SODIUM | [facility] | + + + + Problems + + + + | date | description | facility | + + + + | 2014-07-01 00:00 | Contusion of multiple | [facility] | | | sites | | + + + + | 2014-12-01 00:00 | Acute bronchitis | [facility] | + + + + | 2018-05-19 00:00 | Abdominal pain | [facility] | + + + + | 2022-06-26 [...]
[~2023-04-25 12:52] MED LIST changes: +VARENICLINE TART1 MG PO
--- OUTSIDE RECORDS SUMMARY | 2023-04-25 12:55 | XMS ---
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 E.D. VISIT COUNT (12 MO.) 1 HEMA Michael TOTAL 1 NOTE: Visits indicate total known visits. ED/UCC VISIT TRACKING (12 MO.) 04/25/2023 12:53 [facility] [place] TYPE: Emergency COMPLAINT: - FALL INPATIENT VISIT TRACKING (12 MO.) No inpatient visits to display in this time frame [id number]
[2023-04-25 15:42] VITALS: BP 159/69
== END 2023-04-25 15:43 | disposition home or self-care (01) ==
LOC: ED 12:52
DX: S22.32XA Fracture of one rib, left side, initial encounter for closed fracture (principal); S70.02XA Contusion of left hip, initial encounter; W18.39XA Other fall on same level, initial encounter; Z96.643 Presence of artificial hip joint, bilateral; J44.9 Chronic obstructive pulmonary disease, unspecified; R73.03 Prediabetes; F17.200 Nicotine dependence, unspecified, uncomplicated; Z88.5 Allergy status to narcotic agent; Z88.6 Allergy status to analgesic agent; Z79.899 Other long term (current) drug therapy
CPT/HCPCS: 70450; 71101; 72125; 73502

== ENCOUNTER 2025-04-09 13:09 | Emergency (ER) | payer MEDICARE, OTHER ==
[~2025-04-09] VITALS: Ht 154.9 cm; Wt 61.0 kg
[2025-04-09 14:38] LABS: BASOPHILS 0.9 % (0.1-1.2); EOSINOPHILS 1.9 % (0.7-5.8); LYMPHOCYTES 21.4 % (19.3-51.7); MCH 27.7 PG (25.6-32.2); MCHC 33.0 g/dL (32.2-35.5); MCV 83.8 fL (79.4-94.8); MONOCYTES 5.3 % (4.7-12.5); NEUTROPHILS 70.3 % (34.0-71.1); RBC 4.99 M/uL (3.93-5.22)
[2025-04-09 15:01] LABS: BLOOD/HGB, URINE TRACE-L (Negative); KETONE, URINE NEGATIVE (Negative); LEUK ESTERASE, URINE NEGATIVE (negative); NITRITE, URINE NEGATIVE (negative)
[2025-04-09 15:18] LABS: BACTERIA, URINE RARE /hpf (negative); CASTS, URINE NONE SEEN \\lpf; CRYSTALS, URINE NONE SEEN (0-1+); EPITHELIAL CELLS, URINE SQUAMOUS 2+ /lpf (0-1+); REFLEX CULTURE, URINE No (No)
[2025-04-09 15:20] LABS: ALT (SGPT) 11.0 U/L (14-59); AST (SGOT) 12.0 U/L (15-37); GLOMERULAR FILTRATION RATE,EST 85.0 mL/min (>60); PROTEIN, TOTAL 6.7 g/dL (6.4-8.2); UREA NITROGEN 8.0 mg/dL (7-18)
[2025-04-09] MEDS ORDERED: POTASSIUM CHLORIDE 10 MEQ/100 ML BAG IV SCH (16:15)
[2025-04-09] MEDS ORDERED: POTASSIUM CHLORIDE 10 MEQ TABCR PO ONE (16:15)
[2025-04-09] MEDS ORDERED: CIPRO500 MG PO (17:11)
[2025-04-09] MEDS ORDERED: METRONIDAZOLE500 MG PO (17:11)
[2025-04-09] MEDS ORDERED: CIPROFLOXACIN 500 MG TAB PO ONE (17:15)
[2025-04-09 19:34] VITALS: BP 173/77
== END 2025-04-09 19:36 | disposition home or self-care (01) ==
LOC: ED 13:09
PROVIDERS: Emergency Medicine
DX: K50.00 Crohn's disease of small intestine without complications (principal); E87.6 Hypokalemia; K57.30 Diverticulosis of large intestine without perforation or abscess without bleeding; R73.03 Prediabetes; J44.89 Other specified chronic obstructive pulmonary disease; F17.200 Nicotine dependence, unspecified, uncomplicated; Z96.643 Presence of artificial hip joint, bilateral; Z88.6 Allergy status to analgesic agent; Z88.5 Allergy status to narcotic agent; Z79.01 Long term (current) use of anticoagulants; Z79.899 Other long term (current) drug therapy
CPT/HCPCS: 36415; 74177; 80053; 81001; 83690; 85025; 96365; 99284-25; A9270; J3480; Q9967